=== PATIENT | male | born 1950 | race Caucasian/White ===

== ENCOUNTER 2023-03-24 15:24 | Emergency (ER) | payer MEDICARE, SELFPAY ==
[2023-03-24] VITALS (41 sets, daily range): BP systolic 134–190; BP diastolic 67–96; PULSE 47–77; RESP 9–29; TEMP 36.7; O2SAT 80–100; BMI 22.7
--- NOTE | 2023-03-24 15:39 | DI.RAD.S_ITS ---
PROCEDURE: XR CHEST 1V INDICATIONS: Possible stroke TECHNIQUE: One view of the chest was acquired. COMPARISON: None. FINDINGS: Surgical changes and devices: None. Lungs and pleura: Slight appearance of increased right basilar opacity. Mediastinum: Mediastinal contours appear normal. Heart size is enlarged. Bones and chest wall: No suspicious bony lesions. Overlying soft tissues appear unremarkable. IMPRESSION: Slight appearance of right basilar opacity. This could represent atelectasis versus developing pneumonia. Dictated by: Rachel Cheung M.D. on 03/24/2023 at 15:53 Approved by: Rachel Cheung M.D. on 03/24/2023 at 15:53
--- NOTE | 2023-03-24 15:40 | DI.CT.S_ITS ---
PROCEDURE: CT ANGIO HEAD AND NECK INDICATIONS: right arm numbness a few nights ago hx TIA TECHNIQUE: After the administration of intravenous contrast, 1 mm thick sections acquired from the aortic arch through the [place]. 3-dimensional qudqnqy-wwpkepimj-szzwedmvwj (MIP) and/or volume rendering reformats were acquired of the central intracranial vasculature and neck separately. For radiation dose reduction, the following was used: automated exposure control, adjustment of mA and/or kV according to patient size. COMPARISON: [facility], CT, CT HEAD/BRAIN WO CON, 03/24/2023, 16:38. FINDINGS: Image quality: Diagnostic. BRAIN: See separately dictated CT of the head. HEAD CT ANGIOGRAPHY: Anterior circulation: Calcified and noncalcified atherosclerotic plaques of the internal carotid arteries. Moderate narrowing of the bilateral terminal segments and left ophthalmic segment. There is a small outpouching of the left distal cavernous segment of the YASH measuring approximately 2 x 1 mm. The flow within the paired anterior cerebral arteries is normal and symmetric. Mild to moderate stenosis of the proximal M1 segments bilaterally. No large vessel occlusion or hemodynamically significant stenosis. The anterior communicating artery is seen. No aneurysms are seen. Posterior circulation: Visualized portions of the vertebral arteries demonstrate normal caliber, and join to form a normal appearing basilar artery. origin of the right [employer]. Flow within the posterior cerebral arteries is symmetric with areas of mild to moderate atherosclerotic narrowing.. No aneurysms are seen. NECK CT ANGIOGRAPHY: Carotid system: The great vessels demonstrate a conventional anatomy as they arise from the aortic arch. Atherosclerotic vascular calcifications. The origins of the common carotid arteries appear patent. The common carotid arteries demonstrate normal caliber and courses. Calcified and noncalcified atherosclerotic plaques at the bilateral carotid bulbs. There is 50-69% stenosis of the right proximal ICA by NASCET criteria. 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 Proximal and distal to the pseudoaneurysm there is severe stenosis with greater than 90% narrowing by NASCET criteria. The internal carotid arteries demonstrate normal calibers and courses. Posterior circulation: Moderate narrowing at the origin of the right vertebral artery. Mild narrowing of the origin of the left vertebral artery. The more superior extracranial portions of both vertebral arteries also demonstrate normal courses and calibers. The left vertebral artery appears to terminate into the PICA. The right vertebral artery forms the basilar artery. There is irregularity and aneurysmal dilatation of the right vertebral artery measuring up to 4 x 6 mm. 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 Soft tissues: Visualized neck soft tissues demonstrate no suspicious abnormalities. Bones: No suspicious bony lesions. Visualized cervical spine appears normally aligned. Multilevel degenerative changes of the cervical spine. IMPRESSION: CT angiography head: 1. Areas of up to moderate stenosis of the bilateral intracranial ICA secondary to calcified and noncalcified atherosclerotic plaques. 2. There is a small outpouching of the left cavernous ICA laterally measuring 2 x 1 mm. 3. Mild to moderate narrowing of the bilateral proximal M1 segments. 4. No large vessel occlusion or flow-limiting stenosis intracranially. 5. 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 CT angiography neck: 1. Calcified and noncalcified plaques of the bilateral carotid bifurcations. There is approximately 50-69% stenosis of the right proximal ICA by NASCET criteria. 2. 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 3. Proximal and distal to the pseudoaneurysm, there is severe stenosis of the ICA with greater than 90% narrowing by NASCET criteria. Any quantitative measurements of stenosis were performed using NASCET criteria. Dictated by: Parveen Clemens M.D. on 03/24/2023 at 17:03 Approved by: Parveen Clemens M.D. on 03/24/2023 at 17:16
--- NOTE | 2023-03-24 15:40 | DI.CT.S_ITS ---
PROCEDURE: CT HEAD/BRAIN WO CON INDICATIONS: right arm numbness a few nights ago hx TIA TECHNIQUE: Noncontrast 4.5 mm thick angled axial sections acquired from the foramen magnum to the vertex, with coronal and sagittal reformats. For radiation dose reduction, the following was used: automated exposure control, adjustment of mA and/or kV according to patient size. COMPARISON: [facility], CT, CT ANGIO HEAD AND NECK, 03/24/2023, 16:38. FINDINGS: Image quality: Excellent. CSF spaces: Basal cisterns are patent. No extra-axial fluid collections. The ventricles are symmetric in size and shape. Brain: There is low density seen involving the posterior aspect of the left MCA territory. No intracranial bleeds or masses. There is cerebral volume loss for age, with resultant ventricular and sulcal prominence. There are periventricular and deep white matter chronic small vessel ischemic changes. There is intracranial internal carotid artery atherosclerosis. Skull and face: Calvarium and visualized facial bones appear intact, without suspicious lesions. Sinuses: Extensive paranasal sinus disease is seen. Abnormal soft tissue can be seen within the nasal cavity. No abnormal fluid is seen within the mastoid air cells. 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 No acute intracranial hemorrhage is seen. If there is strong clinical suspicion for an acute stroke, please consider a brain MRI for further evaluation, as it is more sensitive (assuming that there is no contraindication to MRI). Extensive paranasal sinus disease, with likely underlying nasal polyp disease. Dictated by: Avinash Mathews M.D. on 03/24/2023 at 16:03 Approved by: Avinash Mathews M.D. on 03/24/2023 at 16:07
[2023-03-24 16:03] LABS: Prothrombin Time 11.9 SECONDS (10.1-12.7)
[2023-03-24 16:04] LABS: Add Manual Diff / Slide Review NO; Basophils Absolute Auto 100 /uL (0-100); Basophils Percent Auto 0.9 % (0-2); Eosinophils Absolute Auto 400 /uL (0-450); Eosinophils Percent Auto 6.1 % (2-4); Hematocrit 41.2 % (41-53); Hemoglobin 13.8 g/dL (13.5-17.5); Lymphocytes Absolute Auto 1400 /uL (1100-4500); Lymphocytes Percent Auto 19.4 % (25-40); Mean Corpuscular HGB Conc 33.4 % (30-36); Mean Corpuscular Hemoglobin 27.6 PG (26-34); Mean Corpuscular Volume 82.6 fL (80-100); Monocytes Absolute Auto 600 /uL (0-900); Monocytes Percent Auto 7.8 % (3-14); Neutrophils Absolute Auto 4700 /uL (1500-7000); Neutrophils Percent Auto 65.8 % (50-75); Platelet Count 283 X10^3/uL (150-400); Red Blood Cell Count 4.99 X10^6/uL (4.5-5.9); Red Cell Distribution Width 13.4 % (11.6-14.8); White Blood Cell Count 7.1 X10^3/uL (4.5-11.0)
[2023-03-24 16:05] LABS: PTT Partial Thromboplastin Tim 29 SECONDS (26-36)
[2023-03-24 16:16] LABS: Alanine Aminotransferase 22 IU/L (<50); Albumin 4.6 g/dL (3.5-5.0); Albumin Globulin Ratio 1.4 (1.0-2.8); Alkaline Phosphatase 70 U/L (38-126); Aspartate Aminotransferase 26 IU/L (17-59); BUN Creatinine Ratio 25.6 (6-22); Bilirubin Total 0.8 mg/dL (0.2-1.3); Blood Urea Nitrogen 34 mg/dL (9-20); Calcium 9.3 mg/dL (8.4-10.2); Carbon Dioxide 24 mmol/L (22-32); Chloride 98 mmol/L (98-107); Creatine Kinase 75 U/L (55-170); Estimated Glomerular Filt Rate 56 mL/min (>60); Globulin 3.4 g/dL (1.7-4.1); Glucose 101 mg/dL (80-110); Potassium 4.6 mmol/L (3.4-5.1); Sodium 135 mmol/L (137-145)
[2023-03-24 16:24] LABS: HEMOLYSIS 58 (0-50)
[2023-03-24 16:26] LABS: Troponin I < 0.012 ng/mL (0.01-0.034)
--- NOTE | 2023-03-24 16:35 | DI.MRI.S_ITS ---
PROCEDURE: MR HEAD/BRAIN WO CON INDICATIONS: TIA/right arm numbness TECHNIQUE: Non-contrast axial T1 spin echo, axial T2 fast spin echo, sagittal and axial FLAIR, coronal T2 fast spin echo, axial gradient echo, axial diffusion and ADC through the brain. COMPARISON: [facility], CT, CT ANGIO HEAD AND NECK, 03/24/2023, 16:38. [facility], CT, CT HEAD/BRAIN WO CON, 03/24/2023, 16:38. FINDINGS: Image quality: Excellent. CSF spaces: Ventricles appear symmetric in size and shape. Basal cisterns are patent. No extra-axial fluid collections. Brain: No intracranial bleeds or mass effects. There is cerebral volume loss for age. There are periventricular and deep white matter chronic small vessel ischemic changes. Brainstem appears normal. Diffusion-weighted images demonstrate a punctate areas of hyper intensity within the left basal ganglia and subinsular region. These areas demonstrate hypointense signal on T1. There is appearance of old focus ischemia in the left posterior parietal lobe. Intravascular flow void septate mild aneurysmal dilation of the right vertebral artery as well as basilar artery. Skull and face: Calvarial bone marrow is normal in signal. Orbits are normal. Sinuses: Sinuses demonstrate diffuse pansinus mucosal thickening. No fluid levels. IMPRESSION: Punctate acute/subacute punctate areas of ischemia within the left basal ganglia/subinsular region. 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 Please see CT a head and neck report of 03/24/2023 for further details. Dictated by: Rachel Cheung M.D. on 03/24/2023 at 19:10 Approved by: Rachel Cheung M.D. on 03/24/2023 at 19:13
--- NOTE | 2023-03-24 16:37 | ED_ITS ---
HPI - Neuro Symptoms/Deficit <Lucian Foster MD - Last Filed: 04/01/23 09:46> General Chief Complaint: Neuro Symptoms/Deficit Stated Complaint: sent by wic/stroke like symptoms/confusion Time Seen by Provider: 03/24/23 15:37 Source: patient Mode of arrival: Ambulatory History of Present Illness HPI Narrative: Patient here for 2 episodes of right arm numbness tingling in the past 1 week. First episode occurred last week 2nd episode occurred this past Wednesday. It has improved but still persistent. Only mild tingling between the shoulder and fingers now. No slurred speech facial droop headache no confusion altered mental status. Patient has history of TIA a year ago at [facility]. Patient observed there for 5 hours. No MRI was done he states. Has not follow up with anybody for this. Has history of high blood pressure. Is followed by the [place] for high blood pressure. Patient in no distress at this time. Patient outside window for thrombolytics. Outside the window for endovascular interven tion. Fast exam is negative On Anticoagulants: No Related Data Allergies Allergy/AdvReac Type Severity Reaction Status Date / Time No Known Drug Allergies Allergy Verified 03/24/23 15:52 Review of Systems <Lucian Foster MD - Last Filed: 04/01/23 09:46> Review of Systems Narrative: GENERAL: negative chills, fatigue, malaise, fever, sweats. HEENT: negative sinus pain, ear pain, sore throat RESPIRATORY: negative dyspnea, cough CARDIOVASCULAR: negative chest pain, palpitations GASTROINTESTINAL: negative nausea, vomiting, abdominal pain : negative dysuria, frequency, hematuria MUSCULOSKELETAL: negative muscle or bony pain SKIN: negative rash, skin lesions NEUROLOGIC: negative weakness, positive numbness ROS Unobtainable: All systems reviewed & are unremarkable except as noted in HPI and below Hematologic/Lymphatic On Anticoagulants: No Patient History <Lucian Foster MD - Last Filed: 04/01/23 09:46> Social History Smoking Status: Never smoker Smoking Status: Never smoker Substance Use Type: does not use Exam <Lucian Foster MD - Last Filed: 04/01/23 09:46> Narrative Exam Narrative: GENERAL: in no distress, not toxic not dyspneic HEAD: Normocephalic. EYES: Pupils equal round ENT: Mucous membranes moist. NECK: Trachea midline. CARDIOVASCULAR: Regular rate and rhythm RESPIRATORY: Clear to auscultation. Breath sounds equal bilaterally. No wheezes, rales, or rhonchi. GASTROINTESTINAL: Abdomen soft, non-tender EXTREMITIES: No gross deformities. BACK: No flank tenderness. NEURO: AOx4.Clear speech no facial droop. ?Light touch intact to bilateral face hands and feet. ?Strong equal stone circular sawyer bilaterally and ankle flexion hip flexion and knee flexion. ?Strong bilateral patellar reflexes. ?No pronator drift. ? SKIN: Warm and dry PSYCH: Not anxious, is cooperative Initial Vital Signs Initial Vital Signs: Vital Signs Temperature 98.1 F 03/24/23 15:25 Pulse Rate 69 03/24/23 15:25 Respiratory Rate 16 03/24/23 15:25 Blood Pressure 175/84 H 03/24/23 15:25 Pulse Oximetry 99 03/24/23 15:25 Oxygen Delivery Method Room Air 03/24/23 15:25 <Maxx Suero DO - Last Filed: 03/25/23 00:09> Initial Vital Signs Initial Vital Signs: Vital Signs Temperature 98.1 F 03/24/23 15:25 Pulse Rate 69 03/24/23 15:25 Respiratory Rate 16 03/24/23 15:25 Blood Pressure 175/84 H 03/24/23 15:25 Pulse Oximetry 99 03/24/23 15:25 Oxygen Delivery Method Room Air 03/24/23 15:25 Scores <Lucian Foster MD - Last Filed: 04/01/23 09:46> NIH Stroke Scale Level of Conciousness: Alert, keenly responsive Ask month/age: Answers both questions correctly. Open/close eyes, close hand: Performs both tasks correctly Best gaze horizontal: Normal Visual mercado: No visual loss Facial palsy: Normal symetrical movement Left arm drift: No drift for full 10 sec Right arm drift: No drift for full 10 sec Left leg drift: No drift for full 5 sec Right leg drift: No drift for full 5 sec Limb ataxia: Absent Sensory on face/arms/legs: Normal, no sensory loss Best language: No aphasia, normal Dysarthria: Normal Extinction or inattention: No abnormality Total NIH Stroke scale score: 0 <Maxx Suero DO - Last Filed: 03/25/23 00:09> NIH Stroke Scale Total NIH Stroke scale score: 0 Course <Lucian Foster MD - Last Filed: 04/01/23 09:46> Orders Ordered: Discontinued Medications Aspirin (Aspirin 81 Mg Chew Tab) 324 mg PO NOW ONE Stop: 03/24/23 18:07 Last Admin: 03/24/23 18:13 Dose: 324 mg Documented By: SPF Ondansetron HCl (Ondansetron 4 Mg/2 Ml Inj) 4 mg IV NOW PRN PRN Reason: Nausea And Vomiting Ondansetron HCl (Ondansetron 4 Mg Odt) 4 mg SL NOW PRN PRN Reason: Nausea And Vomiting Vital Signs Vital signs: Vital Signs - 8 hr 03/24/23 16:16 03/24/23 16:16 03/24/23 16:30 Pulse Rate 54 L Respiratory Rate 12 Blood Pressure 161/87 H 165/96 H Pulse Oximetry Oxygen Delivery Method 03/24/23 16:30 03/24/23 17:14 03/24/23 17:15 Pulse Rate 66 58 L Respiratory Rate 15 29 H Blood Pressure 177/86 H Pulse Oximetry 94 Oxygen Delivery Method 03/24/23 17:15 03/24/23 17:30 03/24/23 17:30 Pulse Rate 62 50 L Respiratory Rate 15 18 Blood Pressure 164/77 H Pulse Oximetry 97 97 Oxygen Delivery Method Room Air 03/24/23 17:45 03/24/23 17:45 03/24/23 18:00 Pulse Rate 50 L Respiratory Rate 17 Blood Pressure 152/76 H 164/85 H Pulse Oximetry 96 Oxygen Delivery Method Room Air 03/24/23 18:00 03/24/23 18:15 03/24/23 18:15 Pulse Rate 51 L 62 Respiratory Rate 22 18 Blood Pressure 170/87 H Pulse Oximetry 95 95 Oxygen Delivery Method Room Air Room Air 03/24/23 19:12 03/24/23 19:20 03/24/23 19:30 Pulse Rate 65 53 L 54 L Respiratory Rate 12 Blood Pressure Pulse Oximetry 80 L 100 98 Oxygen Delivery Method 03/24/23 19:40 03/24/23 19:50 03/24/23 20:00 Pulse Rate 52 L 50 L 49 L Respiratory Rate Blood Pressure Pulse Oximetry 98 99 96 Oxygen Delivery Method 03/24/23 20:10 03/24/23 20:10 03/24/23 20:15 Pulse Rate 59 L 50 L Respiratory Rate Blood Pressure 157/74 H Pulse Oximetry 96 99 Oxygen Delivery Method 03/24/23 20:15 03/24/23 20:20 03/24/23 20:30 Pulse Rate 49 L Respiratory Rate Blood Pressure 153/74 H 149/70 H Pulse Oximetry 96 Oxygen Delivery Method 03/24/23 20:30 03/24/23 20:40 03/24/23 20:45 Pulse Rate 47 L 50 L Respiratory Rate Blood Pressure 151/74 H Pulse Oximetry 99 99 Oxygen Delivery Method 03/24/23 20:45 03/24/23 20:50 03/24/23 21:00 Pulse Rate 49 L 49 L Respiratory Rate Blood Pressure 134/70 Pulse Oximetry 99 99 Oxygen Delivery Method 03/24/23 21:00 03/24/23 21:15 03/24/23 21:16 Pulse Rate 56 L 49 L 49 L Respiratory Rate 18 18 17 Blood Pressure Pulse Oximetry 99 99 99 Oxygen Delivery Method Room Air 03/24/23 21:16 03/24/23 21:30 03/24/23 21:30 Pulse Rate 49 L Respiratory Rate 14 Blood Pressure 154/73 H 154/73 H Pulse Oximetry 97 Oxygen Delivery Method 03/24/23 21:45 03/24/23 21:45 03/24/23 22:00 Pulse Rate 50 L Respiratory Rate 17 Blood Pressure 137/67 144/74 H Pulse Oximetry 97 Oxygen Delivery Method 03/24/23 22:00 03/24/23 22:15 03/24/23 22:16 Pulse Rate 50 L 51 L Respiratory Rate 16 14 Blood Pressure 157/78 H Pulse Oximetry 97 97 Oxygen Delivery Method 03/24/23 22:16 03/24/23 22:30 03/24/23 22:30 Pulse Rate 52 L 51 L Respiratory Rate 16 19 Blood Pressure 166/84 H Pulse Oximetry 97 98 Oxygen Delivery Method Room Air 03/24/23 22:45 03/24/23 22:45 03/24/23 23:00 Pulse Rate 48 L Respiratory Rate 18 Blood Pressure 156/75 H 176/84 H Pulse Oximetry 97 Oxygen Delivery Method 03/24/23 23:00 03/24/23 23:15 03/24/23 23:15 Pulse Rate 52 L 73 Respiratory Rate 20 16 Blood Pressure 190/95 H Pulse Oximetry 98 96 Oxygen Delivery Method 03/24/23 23:30 03/24/23 23:31 03/24/23 23:31 Pulse Rate 77 77 Respiratory Rate 18 15 Blood Pressure 186/96 H Pulse Oximetry 94 94 Oxygen Delivery Method 03/24/23 23:45 03/24/23 23:46 03/24/23 23:46 Pulse Rate 57 L 58 L Respiratory Rate 13 18 Blood Pressure 149/79 H Pulse Oximetry 96 96 Oxygen Delivery Method 03/25/23 00:00 03/25/23 00:00 Pulse Rate 62 Respiratory Rate 22 Blood Pressure 156/80 H Pulse Oximetry 97 Oxygen Delivery Method Room Air <Maxx Suero, DO - Last Filed: 03/25/23 00:09> Orders Ordered: Discontinued Medications Aspirin (Aspirin 81 Mg Chew Tab) 324 mg PO NOW ONE Stop: 03/24/23 18:07 Last Admin: 03/24/23 18:13 Dose: 324 mg Documented By: DOROTEO Ondansetron HCl (Ondansetron 4 Mg/2 Ml Inj) 4 mg IV NOW PRN PRN Reason: Nausea And Vomiting Ondansetron HCl (Ondansetron 4 Mg Odt) 4 mg SL NOW PRN PRN Reason: Nausea And Vomiting Vital Signs Vital signs: Vital Signs - 8 hr 03/24/23 16:16 03/24/23 16:16 03/24/23 16:30 Pulse Rate 54 L Respiratory Rate 12 Blood Pressure 161/87 H 165/96 H Pulse Oximetry Oxygen Delivery Method 03/24/23 16:30 03/24/23 17:14 03/24/23 17:15 Pulse Rate 66 58 L Respiratory Rate 15 29 H Blood Pressure 177/86 H Pulse Oximetry 94 Oxygen Delivery Method 03/24/23 17:15 03/24/23 17:30 03/24/23 17:30 Pulse Rate 62 50 L Respiratory Rate 15 18 Blood Pressure 164/77 H Pulse Oximetry 97 97 Oxygen Delivery Method Room Air 03/24/23 17:45 03/24/23 17:45 03/24/23 18:00 Pulse Rate 50 L Respiratory Rate 17 Blood Pressure 152/76 H 164/85 H Pulse Oximetry 96 Oxygen Delivery Method Room Air 03/24/23 18:00 03/24/23 18:15 03/24/23 18:15 Pulse Rate 51 L 62 Respiratory Rate 22 18 Blood Pressure 170/87 H Pulse Oximetry 95 95 Oxygen Delivery Method Room Air Room Air 03/24/23 19:12 03/24/23 19:20 03/24/23 19:30 Pulse Rate 65 53 L 54 L Respiratory Rate 12 Blood Pressure Pulse Oximetry 80 L 100 98 Oxygen Delivery Method 03/24/23 19:40 03/24/23 19:50 03/24/23 20:00 Pulse Rate 52 L 50 L 49 L Respiratory Rate Blood Pressure Pulse Oximetry 98 99 96 Oxygen Delivery Method 03/24/23 20:10 03/24/23 20:10 03/24/23 20:15 Pulse Rate 59 L 50 L Respiratory Rate Blood Pressure 157/74 H Pulse Oximetry 96 99 Oxygen Delivery Method 03/24/23 20:15 03/24/23 20:20 03/24/23 20:30 Pulse Rate 49 L Respiratory Rate Blood Pressure 153/74 H 149/70 H Pulse Oximetry 96 Oxygen Delivery Method 03/24/23 20:30 03/24/23 20:40 03/24/23 20:45 Pulse Rate 47 L 50 L Respiratory Rate Blood Pressure 151/74 H Pulse Oximetry 99 99 Oxygen Delivery Method 03/24/23 20:45 03/24/23 20:50 03/24/23 21:00 Pulse Rate 49 L 49 L Respiratory Rate Blood Pressure 134/70 Pulse Oximetry 99 99 Oxygen Delivery Method 03/24/23 21:00 03/24/23 21:15 03/24/23 21:16 Pulse Rate 56 L 49 L 49 L Respiratory Rate 18 18 17 Blood Pressure Pulse Oximetry 99 99 99 Oxygen Delivery Method Room Air 03/24/23 21:16 03/24/23 21:30 03/24/23 21:30 Pulse Rate 49 L Respiratory Rate 14 Blood Pressure 154/73 H 154/73 H Pulse Oximetry 97 Oxygen Delivery Method 03/24/23 21:45 03/24/23 21:45 03/24/23 22:00 Pulse Rate 50 L Respiratory Rate 17 Blood Pressure 137/67 144/74 H Pulse Oximetry 97 Oxygen Delivery Method 03/24/23 22:00 03/24/23 22:15 03/24/23 22:16 Pulse Rate 50 L 51 L Respiratory Rate 16 14 Blood Pressure 157/78 H Pulse Oximetry 97 97 Oxygen Delivery Method 03/24/23 22:16 03/24/23 22:30 03/24/23 22:30 Pulse Rate 52 L 51 L Respiratory Rate 16 19 Blood Pressure 166/84 H Pulse Oximetry 97 98 Oxygen Delivery Method Room Air 03/24/23 22:45 03/24/23 22:45 03/24/23 23:00 Pulse Rate 48 L Respiratory Rate 18 Blood Pressure 156/75 H 176/84 H Pulse Oximetry 97 Oxygen Delivery Method 03/24/23 23:00 03/24/23 23:15 03/24/23 23:15 Pulse Rate 52 L 73 Respiratory Rate 20 16 Blood Pressure 190/95 H Pulse Oximetry 98 96 Oxygen Delivery Method 03/24/23 23:30 03/24/23 23:31 03/24/23 23:31 Pulse Rate 77 77 Respiratory Rate 18 15 Blood Pressure 186/96 H Pulse Oximetry 94 94 Oxygen Delivery Method 03/24/23 23:45 03/24/23 23:46 03/24/23 23:46 Pulse Rate 57 L 58 L Respiratory Rate 13 18 Blood Pressure 149/79 H Pulse Oximetry 96 96 Oxygen Delivery Method 03/25/23 00:00 03/25/23 00:00 Pulse Rate 62 Respiratory Rate 22 Blood Pressure 156/80 H Pulse Oximetry 97 Oxygen Delivery Method Room Air MDM - Neuro Symptoms/Deficit <Lucian Foster MD - Last Filed: 04/01/23 09:46> Lab Data 03/24/23 15:47 03/24/23 15:47 Labs: Lab Results 03/24/23 03/24/23 03/24/23 Range/Units 15:47 15:47 15:47 WBC 7.1 (4.5-11.0) X10^3/uL RBC 4.99 (4.5-5.9) X10^6/uL Hgb 13.8 (13.5-17.5) g/dL Hct 41.2 (41-53) % MCV 82.6 (80-100) fL MCH 27.6 (26-34) PG MCHC 33.4 (30-36) % RDW 13.4 (11.6-14.8) % Plt Count 283 (150-400) X10^3/uL Neut % (Auto) 65.8 (50-75) % Lymph % (Auto) 19.4 L (25-40) % Vernon % (Auto) 7.8 (3-14) % Eos % (Auto) 6.1 H (2-4) % Baso % (Auto) 0.9 (0-2) % Neut # (Auto) 4700 (4499-9580) /uL Lymph # (Auto) 1400 (9989-9855) /uL Vernon # (Auto) 600 (0-900) /uL Eos # (Auto) 400 (0-450) /uL Baso # (Auto) 100 (0-100) /uL PT 11.9 (10.1-12.7) SECONDS INR 1.0 (0.9-1.3) APTT 29 (26-36) SECONDS Sodium 135 L (137-145) mmol/L Potassium 4.6 (3.4-5.1) mmol/L Chloride 98 (98-107) mmol/L Carbon Dioxide 24 (22-32) mmol/L BUN 34 H (9-20) mg/dL Creatinine 1.33 H (0.66-1.25) mg/dL Estimated GFR 56 L (>60) mL/min BUN/Creatinine Ratio 25.6 H (6-22) Glucose 101 (80-110) mg/dL Calcium 9.3 (8.4-10.2) mg/dL Magnesium 2.0 (1.6-2.3) mg/dL Total Bilirubin 0.8 (0.2-1.3) mg/dL AST 26 (17-59) IU/L ALT 22 (<50) IU/L Alkaline Phosphatase 70 (38-126) U/L Total Creatine Kinase 75 (55-170) U/L Troponin I < 0.012 (0.01-0.034) ng/mL Total Protein 8.0 (6.3-8.2) g/dL Albumin 4.6 (3.5-5.0) g/dL Globulin 3.4 (1.7-4.1) g/dL Albumin/Globulin Ratio 1.4 (1.0-2.8) Urine Color Urine Appearance Urine pH (4.5-8.0) Ur Specific Sharon (1.000-1.035) Urine Protein (Negative) Urine Glucose (UA) (Negative) g/dL Urine Ketones (NEGATIVE) Urine Occult Blood (Negative) Urine Nitrate (Negative) Urine Bilirubin (NEGATIVE) Urine Urobilinogen (0.2) E.U./dL Ur Leukocyte Esterase (NEGATIVE) Urine RBC (0-5/HPF) Urine WBC (0-5/HPF) Ur Squamous Epith Cells (0-5/HPF) Urine Bacteria (None) Ur Culture Indicated? U Opiates 300ng/mL cut (Negative) Ur Oxycodone Screen (Negative) Urine Methadone Screen (Negative) Ur Barbiturates Screen (Negative) U Tricyclic Antidepress (Negative) Ur Phencyclidine Scrn (Negative) Ur Amphetamines Screen (Negative) U Methamphetamines Scrn (Negative) Ur MDMA Scrn (Ecstasy) (Negative) U Benzodiazepines Scrn (Negative) Urine Cocaine Screen (Negative) U Marijuana (THC) Screen (Negative) SARS-CoV-2 (PCR) (Negative) 03/24/23 03/24/23 03/24/23 Range/Units 18:30 20:37 22:05 WBC (4.5-11.0) X10^3/uL RBC (4.5-5.9) X10^6/uL Hgb (13.5-17.5) g/dL Hct (41-53) % MCV (80-100) fL MCH (26-34) PG MCHC (30-36) % RDW (11.6-14.8) % Plt Count (150-400) X10^3/uL Neut % (Auto) (50-75) % Lymph % (Auto) (25-40) % Vernon % (Auto) (3-14) % Eos % (Auto) (2-4) % Baso % (Auto) (0-2) % Neut # (Auto) (6182-6092) /uL Lymph # (Auto) (3866-9147) /uL Vernon # (Auto) (0-900) /uL Eos # (Auto) (0-450) /uL Baso # (Auto) (0-100) /uL PT (10.1-12.7) SECONDS INR (0.9-1.3) APTT (26-36) SECONDS Sodium (137-145) mmol/L Potassium (3.4-5.1) mmol/L Chloride (98-107) mmol/L Carbon Dioxide (22-32) mmol/L BUN (9-20) mg/dL Creatinine (0.66-1.25) mg/dL Estimated GFR (>60) mL/min BUN/Creatinine Ratio (6-22) Glucose (80-110) mg/dL Calcium (8.4-10.2) mg/dL Magnesium (1.6-2.3) mg/dL Total Bilirubin (0.2-1.3) mg/dL AST (17-59) IU/L ALT (<50) IU/L Alkaline Phosphatase (38-126) U/L Total Creatine Kinase (55-170) U/L Troponin I (0.01-0.034) ng/mL Total Protein (6.3-8.2) g/dL Albumin (3.5-5.0) g/dL Globulin (1.7-4.1) g/dL Albumin/Globulin Ratio (1.0-2.8) Urine Color Yellow Urine Appearance Clear Urine pH 7.0 (4.5-8.0) Ur Specific Sharon <=1.005 (1.000-1.035) Urine Protein Negative (Negative) Urine Glucose (UA) Negative (Negative) g/dL Urine Ketones Negative (NEGATIVE) Urine Occult Blood Negative (Negative) Urine Nitrate Negative (Negative) Urine Bilirubin Negative (NEGATIVE) Urine Urobilinogen 0.2 (0.2) E.U./dL Ur Leukocyte Esterase Negative (NEGATIVE) Urine RBC None seen (0-5/HPF) Urine WBC None seen (0-5/HPF) Ur Squamous Epith Cells 0-1 /hpf (0-5/HPF) Urine Bacteria None seen (None) Ur Culture Indicated? Cult not indicated U Opiates 300ng/mL cut Negative (Negative) Ur Oxycodone Screen Negative (Negative) Urine Methadone Screen Negative (Negative) Ur Barbiturates Screen Negative (Negative) U Tricyclic Antidepress Negative (Negative) Ur Phencyclidine Scrn Negative (Negative) Ur Amphetamines Screen Negative (Negative) U Methamphetamines Scrn Negative (Negative) Ur MDMA Scrn (Ecstasy) Negative (Negative) U Benzodiazepines Scrn Negative (Negative) Urine Cocaine Screen Negative (Negative) U Marijuana (THC) Screen Negative (Negative) SARS-CoV-2 (PCR) Negative (Negative) Point of Care Testing Glucose POC 94 Imaging Data Chest x-ray: Radiologist's Impression: [address] [address] XRay Report Signed Patient: Evans Dupont MR#: [id number] : 1950 Acct:[id number] Age/Sex: 72 / M Date of Service: 03/24/23 Loc: ED Accession Number: [id number] ?? Procedure: XR chest 1V Ordering Provider: Lucian Foster MD PROCEDURE:? XR CHEST 1V ? INDICATIONS:? Possible stroke ? TECHNIQUE:? One view of the chest was acquired.? ? COMPARISON:? None. ? FINDINGS:? ? Surgical changes and devices:? None.? ? Lungs and pleura:? Slight appearance of increased right basilar opacity. ? Mediastinum:? Mediastinal contours appear normal.? Heart size is enlarged. ? Bones and chest wall:? No suspicious bony lesions.? Overlying soft tissues appear unremarkable.? ? ? IMPRESSION:? Slight appearance of right basilar opacity.? This could represent atelectasis versus developing pneumonia. ? ? Dictated by: Rachel Cheung M.D. on 03/24/2023 at 15:53 ? ? Approved by: Rachel Cheung M.D. on 03/24/2023 at 15:53 ? CTA - brain/neck: Radiologist's Impression: [place] [address] CT Scan Report Signed Patient: Evans Dupont MR#: [id number] : 1950 Acct:[id number] Age/Sex: 72 / M Date of Service: 03/24/23 Loc: ED Accession Number: [id number] ?? Procedure: CT angio head and neck Ordering Provider: Lucian Foster MD PROCEDURE:? CT ANGIO HEAD AND NECK ? INDICATIONS:? right arm numbness a few nights ago hx TIA ? TECHNIQUE:? After the administration of intravenous contrast, 1 mm thick sections acquired from the aortic arch through the [place] of Romero.? 3-dimensional ghzaprh-knkvxltfr-gjtplhemjk (MIP) and/or volume rendering reformats were acquired of the central intracranial vasculature and neck separately. For radiation dose reduction, the following was used:? automated exposure control, adjustment of mA and/or kV according to patient size.? ? COMPARISON:? [facility], CT, CT HEAD/BRAIN WO CON, 03/24/2023, 16:38. ? FINDINGS:? Image quality:? Diagnostic.? ? BRAIN:? See separately dictated CT of the head.? ? HEAD CT ANGIOGRAPHY:? Anterior circulation:? Calcified and noncalcified atherosclerotic plaques of the internal carotid arteries.? Moderate narrowing of the bilateral terminal segments and left ophthalmic segment.? There is a small outpouching of the left distal cavernous segment of the YASH measuring approximately 2 x 1 mm.? The flow within the paired anterior cerebral arteries is normal and symmetric.? Mild to moderate stenosis of the proximal M1 segments bilaterally.? No large vessel occlusion or hemodynamically significant stenosis.? The anterior communicating artery is seen.? No aneurysms are seen.? ? Posterior circulation:? Visualized portions of the vertebral arteries demonstrate normal caliber, and join to form a normal appearing basilar artery.? origin of the right LOCK STITCH CHANNELER. Flow within the posterior cerebral arteries is symmetric with areas of mild to moderate atherosclerotic narrowing..? No aneurysms are seen.? ? NECK CT ANGIOGRAPHY:? Carotid system:? The great vessels demonstrate a conventional anatomy as they arise from the aortic arch.? Atherosclerotic vascular calcifications.? The origins of the common carotid arteries appear patent.? The common carotid arteries demonstrate normal caliber and courses.? Calcified and noncalcified atherosclerotic plaques at the bilateral carotid bulbs.? There is 50-69% stenosis of the right proximal ICA by NASCET criteria.? 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 Proximal and distal to the pseudoaneurysm there is severe stenosis with greater than 90% narrowing by NASCET criteria.? The internal carotid arteries demonstrate normal calibers and courses.? ? ? Posterior circulation:? Moderate narrowing at the origin of the right vertebral artery.? Mild narrowing of the origin of the left vertebral artery.? The more superior extracranial portions of both vertebral arteries also demonstrate normal courses and calibers.? The left vertebral artery appears to terminate into the PICA.? The right vertebral artery forms the basilar artery.? 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 ? Soft tissues:? Visualized neck soft tissues demonstrate no suspicious abn ormalities.? ? Bones:? No suspicious bony lesions.? Visualized cervical spine appears normally aligned.? Multilevel degenerative changes of the cervical spine. ? ? IMPRESSION:? ? CT angiography head: 1. Areas of up to moderate stenosis of the bilateral intracranial ICA secondary to calcified and noncalcified atherosclerotic plaques. 2. There is a small outpouching of the left cavernous ICA laterally measuring 2 x 1 mm. 3. Mild to moderate narrowing of the bilateral proximal M1 segments. 4. No large vessel occlusion or flow-limiting stenosis intracranially. 5. 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 ? CT angiography neck: 1. Calcified and noncalcified plaques of the bilateral carotid bifurcations.? There is approximately 50-69% stenosis of the right proximal ICA by NASCET criteria. 2. 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 3. Proximal and distal to the pseudoaneurysm, there is severe stenosis of the ICA with greater than 90% narrowing by NASCET criteria. ? Any quantitative measurements of stenosis were performed using NASCET criteria.? ? ? Dictated by: Parveen Clemens M.D. on 03/24/2023 at 17:03 ? ? Approved by: Parveen Clemens M.D. on 03/24/2023 at 17:16 ? CT scan - head: Radiologist's Impression: [place] [address] CT Scan Report Signed Patient: Evans Dupont MR#: [id number] : 1950 Acct:[id number] Age/Sex: 72 / M Date of Service: 03/24/23 Loc: Accession Number: [id number] ?? Procedure: CT head/brain wo con Ordering Provider: Lucian Foster MD PROCEDURE:? CT HEAD/BRAIN WO CON ? INDICATIONS:? right arm numbness a few nights ago hx TIA ? TECHNIQUE:? Noncontrast 4.5 mm thick angled axial sections acquired from the foramen magnum to the vertex, with coronal and sagittal reformats.? For radiation dose reduction, the following was used:? automated exposure control, adjustment of mA and/or kV according to patient size.? ? COMPARISON:? [facility], CT, CT ANGIO HEAD AND NECK, 03/24/2023, 16:38. ? FINDINGS:? Image quality:? Excellent.? ? CSF spaces:? Basal cisterns are patent.? No extra-axial fluid collections.? The ventricles are symmetric in size and shape.? ? Brain:? There is low density seen involving the posterior aspect of the left MCA territory. ? No intracranial bleeds or masses.? There is cerebral volume loss for age, with resultant ventricular and sulcal prominence.? There are periventricular and deep white matter chronic small vessel ischemic changes.? There is intracranial internal carotid artery atherosclerosis.? ? Skull and face:? Calvarium and visualized facial bones appear intact, without suspicious lesions.? ? Sinuses:? Extensive paranasal sinus disease is seen.? Abnormal soft tissue can be seen within the nasal cavity. No abnormal fluid is seen within the mastoid air cells. ? ? IMPRESSION:? Apparent infarction seen involving the posterior aspect of the left MCA territory, which has a subacute to remote appearance.? ? No acute intracranial hemorrhage is seen. ? If there is strong clinical suspicion for an acute stroke, please consider a brain MRI for further evaluation, as it is more sensitive (assuming that there is no contraindication to MRI). ? Extensive paranasal sinus disease, with likely underlying nasal polyp disease. ? ? Dictated by: Avinash Mathews M.D. on 03/24/2023 at 16:03 ? ? Approved by: Avinash Mathews M.D. on 03/24/2023 at 16:07 ? [facility] [facility] Narrative Medical decision making narrative: Patient here for 2 episodes of right arm numbness tingling in the past 1 week. First episode occurred last week 2nd episode occurred this past Wednesday. It has improved but still persistent. Only mild tingling between the shoulder and fingers now. No slurred speech facial droop headache no confusion altered mental status. Patient has history of TIA a year ago at [facility]. Patient observed there for 5 hours. No MRI was done he states. Has not follow up with anybody for this. Has history of high blood pressure. [facility]. Patient in no distress at this time. Patient outside window for thrombolytics. Outside the window for endovascular intervention. Fast exam is negative After history and exam CBC CMP troponin EKG CT head CT angiogram head and neck MRI brain normal saline MDM CC: Right arm numbness Complicating co-morbidities: History of TIA Data collected from: Patient Medical records reviewed: No recent visit for this complaint Differential considered: Includes but not limited to TIA stroke peripheral neuropathy cervical radiculopathy Exam documented above, pertinent findings include: No weakness numbness to the arm. Fast exam is negative Lab Test results independently reviewed as above. Pertinent findings: WBC 7.1 sodium 135 BUN 34 creatinine 1.33 GFR 56 troponin less than 0.012 Independently reviewed EKG sinus bradycardia rate 57 otherwise normal EKG no ST elevation or depression Imaging studies independently reviewed: CT head CT angiogram head and neck Chest x-ray no acute process Consultations: 6:00 p.m.. Spoke with [facility] tele stroke, Dr Arrington, she will review imaging, I went over reports with her. She thinks patient may be a candidate to be transferred. Treatments: Normal saline Re-evaluations: 6:10 p.m.. No changes during course of stay Discussion: Diagnosis: 6:[address] Foster: Sign out to Dr Suero MRI is pending. Patient possibly needs transferring <Maxx Suero DO - Last Filed: 03/25/23 00:09> Lab Data Labs: Lab Results 03/24/23 03/24/23 03/24/23 Range/Units 15:47 15:47 15:47 WBC 7.1 (4.5-11.0) X10^3/uL RBC 4.99 (4.5-5.9) X10^6/uL Hgb 13.8 (13.5-17.5) g/dL Hct 41.2 (41-53) % MCV 82.6 (80-100) fL MCH 27.6 (26-34) PG MCHC 33.4 (30-36) % RDW 13.4 (11.6-14.8) % Plt Count 283 (150-400) X10^3/uL Neut % (Auto) 65.8 (50-75) % Lymph % (Auto) 19.4 L (25-40) % Vernon % (Auto) 7.8 (3-14) % Eos % (Auto) 6.1 H (2-4) % Baso % (Auto) 0.9 (0-2) % Neut # (Auto) 4700 (0178-7079) /uL Lymph # (Auto) 1400 (1178-0308) /uL Vernon # (Auto) 600 (0-900) /uL Eos # (Auto) 400 (0-450) /uL Baso # (Auto) 100 (0-100) /uL PT 11.9 (10.1-12.7) SECONDS INR 1.0 (0.9-1.3) APTT 29 (26-36) SECONDS Sodium 135 L (137-145) mmol/L Potassium 4.6 (3.4-5.1) mmol/L Chloride 98 (98-107) mmol/L Carbon Dioxide 24 (22-32) mmol/L BUN 34 H (9-20) mg/dL Creatinine 1.33 H (0.66-1.25) mg/dL Estimated GFR 56 L (>60) mL/min BUN/Creatinine Ratio 25.6 H (6-22) Glucose 101 (80-110) mg/dL Calcium 9.3 (8.4-10.2) mg/dL Magnesium 2.0 (1.6-2.3) mg/dL Total Bilirubin 0.8 (0.2-1.3) mg/dL AST 26 (17-59) IU/L ALT 22 (<50) IU/L Alkaline Phosphatase 70 (38-126) U/L Total Creatine Kinase 75 (55-170) U/L Troponin I < 0.012 (0.01-0.034) ng/mL Total Protein 8.0 (6.3-8.2) g/dL Albumin 4.6 (3.5-5.0) g/dL Globulin 3.4 (1.7-4.1) g/dL Albumin/Globulin Ratio 1.4 (1.0-2.8) Urine Color Urine Appearance Urine pH (4.5-8.0) Ur Specific Sharon (1.000-1.035) Urine Protein (Negative) Urine Glucose (UA) (Negative) g/dL Urine Ketones (NEGATIVE) Urine Occult Blood (Negative) Urine Nitrate (Negative) Urine Bilirubin (NEGATIVE) Urine Urobilinogen (0.2) E.U./dL Ur Leukocyte Esterase (NEGATIVE) Urine RBC (0-5/HPF) Urine WBC (0-5/HPF) Ur Squamous Epith Cells (0-5/HPF) Urine Bacteria (None) Ur Culture Indicated? U Opiates 300ng/mL cut (Negative) Ur Oxycodone Screen (Negative) Urine Methadone Screen (Negative) Ur Barbiturates Screen (Negative) U Tricyclic Antidepress (Negative) Ur Phencyclidine Scrn (Negative) Ur Amphetamines Screen (Negative) U Methamphetamines Scrn (Negative) Ur MDMA Scrn (Ecstasy) (Negative) U Benzodiazepines Scrn (Negative) Urine Cocaine Screen (Negative) U Marijuana (THC) Screen (Negative) SARS-CoV-2 (PCR) (Negative) 03/24/23 03/24/23 03/24/23 Range/Units 18:30 20:37 22:05 WBC (4.5-11.0) X10^3/uL RBC (4.5-5.9) X10^6/uL Hgb (13.5-17.5) g/dL Hct (41-53) % MCV (80-100) fL MCH (26-34) PG MCHC (30-36) % RDW (11.6-14.8) % Plt Count (150-400) X10^3/uL Neut % (Auto) (50-75) % Lymph % (Auto) (25-40) % Vernon % (Auto) (3-14) % Eos % (Auto) (2-4) % Baso % (Auto) (0-2) % Neut # (Auto) (3608-3075) /uL Lymph # (Auto) (2792-9442) /uL Vernon # (Auto) (0-900) /uL Eos # (Auto) (0-450) /uL Baso # (Auto) (0-100) /uL PT (10.1-12.7) SECONDS INR (0.9-1.3) APTT (26-36) SECONDS Sodium (137-145) mmol/L Potassium (3.4-5.1) mmol/L Chloride (98-107) mmol/L Carbon Dioxide (22-32) mmol/L BUN (9-20) mg/dL Creatinine (0.66-1.25) mg/dL Estimated GFR (>60) mL/min BUN/Creatinine Ratio (6-22) Glucose (80-110) mg/dL Calcium (8.4-10.2) mg/dL Magnesium (1.6-2.3) mg/dL Total Bilirubin (0.2-1.3) mg/dL AST (17-59) IU/L ALT (<50) IU/L Alkaline Phosphatase (38-126) U/L Total Creatine Kinase (55-170) U/L Troponin I (0.01-0.034) ng/mL Total Protein (6.3-8.2) g/dL Albumin (3.5-5.0) g/dL Globulin (1.7-4.1) g/dL Albumin/Globulin Ratio (1.0-2.8) Urine Color Yellow Urine Appearance Clear Urine pH 7.0 (4.5-8.0) Ur Specific Sharon <=1.005 (1.000-1.035) Urine Protein Negative (Negative) Urine Glucose (UA) Negative (Negative) g/dL Urine Ketones Negative (NEGATIVE) Urine Occult Blood Negative (Negative) Urine Nitrate Negative (Negative) Urine Bilirubin Negative (NEGATIVE) Urine Urobilinogen 0.2 (0.2) E.U./dL Ur Leukocyte Esterase Negative (NEGATIVE) Urine RBC None seen (0-5/HPF) Urine WBC None seen (0-5/HPF) Ur Squamous Epith Cells 0-1 /hpf (0-5/HPF) Urine Bacteria None seen (None) Ur Culture Indicated? Cult not indicated U Opiates 300ng/mL cut Negative (Negative) Ur Oxycodone Screen Negative (Negative) Urine Methadone Screen Negative (Negative) Ur Barbiturates Screen Negative (Negative) U Tricyclic Antidepress Negative (Negative) Ur Phencyclidine Scrn Negative (Negative) Ur Amphetamines Screen Negative (Negative) U Methamphetamines Scrn Negative (Negative) Ur MDMA Scrn (Ecstasy) Negative (Negative) U Benzodiazepines Scrn Negative (Negative) Urine Cocaine Screen Negative (Negative) U Marijuana (THC) Screen Negative (Negative) SARS-CoV-2 (PCR) Negative (Negative) Point of Care Testing Glucose POC 94 MDM Narrative Medical decision making narrative: Patient here for 2 episodes of right arm numbness tingling in the past 1 week. First episode occurred last week 2nd episode occurred this past Wednesday. It has improved but still persistent. Only mild tingling between the shoulder and fingers now. No slurred speech facial droop headache no confusion altered mental status. Patient has history of TIA a year ago at [facility]. P atient observed there for 5 hours. No MRI was done he states. Has not follow up with anybody for this. Has history of high blood pressure. [facility] Patient in no distress at this time. Patient outside window for thrombolytics. Outside the window for endovascular intervention. Fast exam is negative After history and exam CBC CMP troponin EKG CT head CT angiogram head and neck MRI brain normal saline MDM CC: Right arm numbness Complicating co-morbidities: History of TIA Data collected from: Patient Medical records reviewed: No recent visit for this complaint Differential considered: Includes but not limited to TIA stroke peripheral n europathy cervical radiculopathy Exam documented above, pertinent findings include: No weakness numbness to the arm. Fast exam is negative Lab Test results independently reviewed as above. Pertinent findings: WBC 7.1 sodium 135 BUN 34 creatinine 1.33 GFR 56 troponin less than 0.012 Independently reviewed EKG sinus bradycardia rate 57 otherwise normal EKG no ST elevation or depression Imaging studies independently reviewed: CT head CT angiogram head and neck Chest x-ray no acute process Consultations: 6:00 p.m.. Spoke with [facility] tele stroke, Dr Arrington, she will review imaging, I went over reports with her. She thinks patient may be a candidate to be transferred. Treatments: Normal saline Re-evaluations: 6:10 p.m.. No changes during course of stay 6:[address] Foster: Sign out to Dr Suero MRI is pending. Patient possibly needs transferring [[id number]] ([place]) Patient received in sign out from [Kristin]. I have reviewed the clinical course and performed an independent history and physical exam. Patient continues to have very difficult speech pattern with an expressive aphasia, no ongoing extremity weakness. Just prior to his departure Dr. Foster good spoken with the [facility] stroke team who wants him transferred given the severity of the vascular abnormalities on imaging. 2100 - Dr. Arrington (Neuro @ [facility]) accepts in transfer, requests ED to ED. Patient understands and agrees with the diagnosis and plan, transport arranged <Maxx Suero, DO - Last Filed: 03/25/23 00:09> Critical Care Time Critical Care Time: Yes Total Critical Care Time: 45 Attestation: Critical Care Time [45] minutes: Critical care time is separate from other billable procedures. This critical care time includes consultation with family and other consulting doctors, review of records, and interpretation of data from labs, EKGs, imaging, etc. Discharge Plan Departure Patient Disposition: General Acute Hospital Clinical Impression: Cerebrovascular accident
[2023-03-24] MEDS: ASPIRIN 81 MG CHEW TAB 324 MG PO (18:13)
[2023-03-24 19:02] LABS: UR Morphine/Opiate cutoff 300 Negative (Negative); Ur Creatinine Normal (Normal); Ur Specific Gravity Normal (Normal); Urine Amphetamines Negative (Negative); Urine Barbiturates Negative (Negative); Urine Benzodiazepines Negative (Negative); Urine Cocaine Negative (Negative); Urine MDMA Negative (Negative); Urine Methadone Negative (Negative); Urine Methamphetamines Negative (Negative); Urine Oxycodone Negative (Negative); Urine Phencyclidine Negative (Negative); Urine Tetrahydrocannabinol Negative (Negative); Urine Tricyclic Antidepressant Negative (Negative); Urine pH Normal (Normal)
--- NOTE | 2023-03-24 19:31 | PC.NURSE ---
Addendum entered by Mary Savage CNA 03/24/23 23:45: SHON note: Unruly is currently at [facility] in [facility]. Patient has phone number of vet w/ address on his person w/ officer Daniel's number/business card. Made a page of information for patient's chart to go with him to [facility]. If patient would like to call Dr. Santamaria's number it is [phone] Addendum entered by Mary Savage CNA 03/24/23 21:37: SHON note: Checked on Seqususanne. Dog refused to get out of car for a walk. Gave dog a denture cup of water on car seat. Called [facility]'s non emergent number to ask what would be protocol for the dog if patient gets transferred. Officer Luisana called me back and told me that the dog would go to Doctor Santamaria's office and would be taken care for there. Police are doing change of shift and Officer will call me back with more information. Original Note: SHON note: Patient requested someone to check on his dog, a black small poodle mix named Unruly. Patient gave permission to check on dog in his car. Attempted to get dog from car, Unruly refused. Car's windows are rolled down to allow airflow. Will check on dog when time allows. [place]. audiovisual lead technician and doctor aware.
[2023-03-24 20:42] LABS: Appearance Urine UA CLEAR; Bilirubin Urine UA NEGATIVE (NEGATIVE); Color Urine UA YELLOW; Glucose Urine UA NEGATIVE (Negative); Ketones Urine UA NEGATIVE (NEGATIVE); Leukocyte Esterase Urine UA NEGATIVE (NEGATIVE); Nitrite Urine UA NEGATIVE (Negative); Occult Blood Urine UA NEGATIVE (Negative); Protein Urine UA NEGATIVE (Negative); Specific Gravity Urine UA <=1.005 (1.000-1.035); Urobilinogen Urine UA 0.2 E.U./dL (0.2)
[2023-03-24 20:50] LABS: RBC Urine None Seen (0-5/HPF); WBC Urine None Seen (0-5/HPF)
[2023-03-24 20:51] LABS: Bacteria Urine None Seen; Culture Indicated Urine Cult Not Indicated; Squamous Epithelial Cell Urine 0-1 /HPF (0-5/HPF)
[2023-03-24 22:25] LABS: COVID19 -Nasal RAPID Negative (Negative)
[2023-03-25] VITALS: BP 156/80; PULSE 62; RESP 22; O2SAT 97
--- NOTE | 2023-03-25 00:20 | PC.NURSE ---
Patient diagnosed with CVA and being transported via [facility] ambulance to [facility] (ER to ER transfer). Dr. Arrington is accepting ER physician. Patient had arrived to [facility] POV with his small dog Sequel, who was left in car while patient was being evaluated in ER. Once it was determined that patient would need hospitalization, staff began trying to assist patient with plan of care for his dog. Patient reports he has no family, friends, or support system in the area that could help with caring for Sequel. [place] police department contacted and options reviewed for dog care. Officer Adi proposed taking dog to [facility], which utilizes kennels at the [facility]. Patient is agreeable with this plan. Given patient's diagnosis and symptoms, staff explained to patient it would be unsafe to have him go to car to get dog to bring him to be placed in kennel until [employer] officer can pick him up. Patient states understanding and agrees to let staff go to car for dog and to lock his vehicle. This RN and SHON Amezcua brought patient's dog into ER and windows were rolled up and car locked. [facility] Security informed of patient's situation and that his car will be in parking lot for an unknown amount of time while patient is transferred to [facility]. Security provided with facesheet for patient, location of car, and the following car information: Blue, Convertible Mini [employer] S, License Plate [id number]. 2320: [employer], Officer Adi took patient dog, Sequel, to [facility]. Patient was provided with contact information for officer Adi and location information and phone number for [facility] where Sequel will be staying. 0015: [facility] ALS crew arrived. Report given to SERGIO Sanchez RN, all questions answered. Patient denies having any numbness/tingling at time of transfer, but continues to have difficultly finding words/expressive aphasia. 0025: Patient left [facility] at this time via ambulance with A ALS crew to [facility] ER.
== END 2023-03-25 00:25 | disposition short-term general hospital (02) ==
PROVIDERS: Emergency Medicine; Emergency Provider Emergency Medicine
DX: I63.9 Cerebral infarction, unspecified (principal); Z20.822 Contact with and (suspected) exposure to COVID-19
CPT/HCPCS: 36415; 70450; 70496; 70498; 70551; 71045; 80053; 80305; 81001; 82550; 82962; 83735; 84484; 85025; 85610; 85730; 87635; 93005; 93010; 99284; 99285; C9803; Q9967

== ENCOUNTER 2023-04-14 05:03 | Emergency (ER) | payer MEDICARE, SELFPAY ==
[2023-04-14 05:05] VITALS: BP 118/91; PULSE 163; RESP 15; TEMP 36; O2SAT 97
[2023-04-14 05:26] VITALS: BP 118/91; PULSE 163
[2023-04-14] MEDS: dilTIAZem 5 MG/ML SDV 15 MG IV (05:26)
[2023-04-14] MEDS: SODIUM CHLORIDE 0.9% 1,000 ML 1000 ML IV (05:26)
[2023-04-14 05:30] VITALS: BP 114/88; PULSE 78; RESP 18; O2SAT 98
[2023-04-14 06:00] VITALS: BP 118/74; PULSE 74; RESP 16; O2SAT 97
--- NOTE | 2023-04-14 06:10 | ED_ITS ---
HPI - Arrhythmia/Palpitations General Chief Complaint: Arrhythmia/Palpitations Stated Complaint: tachycardia Time Seen by Provider: 04/14/23 05:54 History of Present Illness HPI narrative: 72-year-old male former smoker with history of hypertension, hyperlipidemia, coronary artery disease with recent triple-vessel bypass presents with a friend and a chief complaint of a few hours of a rapid heart rate and some shortness of breath.? He is not dizzy nor weak or lightheaded.? He denies any chest pain but does have some pressure.? He denies any fever or chills.? He denies any history of the same.? He would recently been transferred from here to the [facility] for a new Left MCA Stroke and L ICA Stenosis with CEA on 03/26.? He developed NSTEMI in the postop phase and was found to have multivessel disease. Related Data Allergies Allergy/AdvReac Type Severity Reaction Status Date / Time No Known Drug Allergies Allergy Verified 03/24/23 15:52 Review of Systems Review of Systems Narrative: GENERAL: Denies chills, fatigue, malaise, fever, sweats. HEENT: Denies sinus pain, ear pain, sore throat, difficulty swallowing, dizziness. RESPIRATORY see HPI CARDIOVASCULAR: ?See HPI GASTROINTESTINAL: Denies nausea, vomiting, abdominal pain, diarrhea, constipation, melena. : Denies dysuria, frequency, incontinence, hematuria, urinary retention. MUSCULOSKELETAL: denies weakness, joint pain, or bony pain SKIN: Denies rash, skin lesions, or other NEUROLOGIC: Denies weakness, headache, numbness, change in speech, confusion, seizures, incoordination. PSYCHIATRIC: No concerning psychosocial issues. 12 point review of systems is negative except for those stated above Patient History Social History Smoking Status: Never smoker Smoking Status: Never smoker Substance Use Type: does not use Exam Narrative Exam Narrative: GENERAL: [72] year old patient appears stated age. Well-developed patient, in mild distress. HEAD: Atraumatic. Normocephalic. EYES: Pupils equal round and reactive. Extraocular motions intact. No scleral icterus. No injection or drainage. ENT: Nose without bleeding, purulent drainage. Throat without erythema, tonsillar hypertrophy or exudate. Airway patent. NECK: Trachea midline. Non tender CARDIOVASCULAR: ?Tachycardic but regular rhythm without murmurs, gallops, or rubs. ?Appropriately healing midsternal incision is clean, dry and intact without evidence of dehiscence RESPIRATORY: Clear to auscultation. Breath sounds equal bilaterally. No wheezes, rales, or rhonchi.? GASTROINTESTINAL: Abdomen soft, non-tender, nondistended. EXTREMITIES: No edema or joint tenderness. BACK: Nontender without deformity or crepitance. No flank tenderness. NEURO: AOx3. SKIN: No rash or erythema of visible areas Initial Vital Signs Initial Vital Signs: Vital Signs Temperature 96.8 F L 04/14/23 05:05 Pulse Rate 163 H 04/14/23 05:05 Respiratory Rate 15 04/14/23 05:05 Blood Pressure 118/91 H 04/14/23 05:05 Pulse Oximetry 97 04/14/23 05:05 Oxygen Delivery Method Room Air 04/14/23 05:05 Course Orders Ordered: ED Orders 04/14/23 Complete Blood Count AUTO DIFF Stat 04/14/23 05:38 EKG-12 Lead Routine 04/14/23 06:13 XR chest 1V Stat Comprehensive Metabolic Panel Stat Magnesium Stat PTT Partial Thromboplastin Librado Stat Prothrombin Time INR Stat Troponin & CK Cardiac Panel Stat EKG-12 Lead Stat Sodium Chloride (Normal Saline 0.9%) 1,000 mls @ 1,000 mls/hr IV BOLUS ONE Stop: 04/14/23 07:15 Last Admin: 04/14/23 05:26 Dose: 1,000 mls/hr Discontinued Medications Diltiazem HCl (Diltiazem 5 Mg/Ml Sdv) 15 mg IV NOW ONE Stop: 04/14/23 05:27 Last Admin: 04/14/23 05:26 Dose: 15 mg Vital Signs Vital signs: Vital Signs - 8 hr 04/14/23 05:05 04/14/23 05:26 04/14/23 05:30 Temperature 96.8 F L Pulse Rate 163 H 163 H 78 Respiratory Rate 15 18 Blood Pressure 118/91 H 118/91 H 114/88 Pulse Oximetry 97 98 Oxygen Delivery Method Room Air Room Air 04/14/23 06:00 Temperature Pulse Rate 74 Respiratory Rate 16 Blood Pressure 118/74 Pulse Oximetry 97 Oxygen Delivery Method Room Air MDM - Arrhythmia/Palpitations Lab Data 04/14/23 05:21 04/14/23 05:21 Labs: Lab Results 04/14/23 Range/Units 05:21 PT 13.9 H (10.1-12.7) SECONDS INR 1.2 (0.9-1.3) APTT 26 (26-36) SECONDS Sodium 138 (137-145) mmol/L Potassium 4.6 (3.4-5.1) mmol/L Chloride 106 (98-107) mmol/L Carbon Dioxide 24 (22-32) mmol/L BUN 46 H (9-20) mg/dL Creatinine 1.89 H (0.66-1.25) mg/dL Estimated GFR 37 L (>60) mL/min BUN/Creatinine Ratio 24.3 H (6-22) Glucose 120 H (80-110) mg/dL Calcium 9.1 (8.4-10.2) mg/dL Magnesium 2.1 (1.6-2.3) mg/dL Total Bilirubin 0.6 (0.2-1.3) mg/dL AST 41 (17-59) IU/L ALT 37 (<50) IU/L Alkaline Phosphatase 85 (38-126) U/L Total Creatine Kinase 53 L (55-170) U/L Troponin I 0.061 H (0.01-0.034) ng/mL Total Protein 6.7 (6.3-8.2) g/dL Albumin 3.6 (3.5-5.0) g/dL Globulin 3.1 (1.7-4.1) g/dL Albumin/Globulin Ratio 1.2 (1.0-2.8) MDM Narrative Medical decision making narrative: CC:? 72-year-old male with rapid heart rate and chest pressure Complicating co-morbidities:? Recent three-vessel CABG and carotid endarterectomy Data collected from:? Patient Medical records reviewed:? Prior notes reviewed in our EMR Differential considered, but not limited to:? AFib versus SVT versus atrial flutter versus other Exam documented above, pertinent findings include: ?Rapid regular heart rate, no labored breathing, abdomen soft Lab Test results independently reviewed as above. Pertinent findings: Independently reviewed EKG as above Imaging studies independently reviewed: Scores Used: MIPS Elements: Consultations: 532 ? call to CT Surgery (Dr. Escudero). After discussing history and physical he is happy with the outcome, does not recommend any medication changes, no anticoagulation, recommends following up and his cardiology appointment later today as previously planned Treatments: Cardizem 15mg IVP ? HR slows and then converts to NSR in 70s. Re-evaluations: Patient quickly slowed to normal sinus rhythm in the 70s and he has been asymptomatic since Discussion: Patient presents with rapid heart rate in subtle symptoms otherwise, found to be in a 2:1 atrial flutter, Cardizem 15 mg given and he slows to a normal sinus rhythm in the 70s at which point becomes asymptomatic. Labs are unremarkable, slight indeterminate troponin discussed with Cardiothoracic surgery and thought to be rate related, no need to pursue this further. Patient is asymptomatic, has an appointment later today, return precautions discussed Disposition: see below, along with detailed discharge instructions that have been reviewed with patient as well as indications for ED re-evaluation and additional outpatient follow up Discharge Plan Departure Patient Disposition: Home Clinical Impression: Atrial flutter Instructions: DI for Atrial Flutter Activity Restrictions/Additional Instructions: *You have been diagnosed with [atrial flutter. As we discussed your history and physical exam as well as labs and EKGs are reassuring. Cardizem 15 mg slowed your heart and converted you from atrial flutter into your normal sinus rhythm.] *What to do: *Please continue to take your regular medications as directed. [ ] New medication prescriptions sent to your pharmacy: [ ] [ ] New medication written as a paper prescription [ ] No new medications given *Please follow up with your previously scheduled cardiology appointment later today. *Return to Emergency Department if you should have any new, worsening or concerning symptoms, such as [fever greater than 101 F, shaking chills, worsening pain, persistent vomiting or other bothersome symptoms] Stand Alone Forms: Patient Portal/API
--- NOTE | 2023-04-14 06:13 | DI.RAD.S_ITS ---
PROCEDURE: XR CHEST 1V INDICATIONS: short of breath TECHNIQUE: One view of the chest was acquired. COMPARISON: [facility], , XR CHEST 1V, 03/24/2023, 15:39. FINDINGS: Surgical changes and devices: Sternotomy wires and mediastinal clips are present, which are new when compared to the prior radiographs. Lungs and pleura: Mild blunting of left costophrenic angle is compatible with a small pleural effusion. Mediastinum: There is a broad appearance of the lower mediastinum that may be related to recent postsurgical changes versus a hiatal hernia, left atrial enlargement, or other etiology. Cardiac silhouette is mildly enlarged. Bones and chest wall: No suspicious bony lesions. Overlying soft tissues appear unremarkable. IMPRESSION: 1. Small left pleural effusion. 2. Prominence of the lower mediastinum may be related to recent postsurgical changes, left atrial enlargement, hiatal hernia, or other etiology. Recommend AP and lateral chest radiographs versus chest CT for further evaluation. Approved by: Rupesh Garcia M.D. on 04/14/2023 at 8:29
[2023-04-14 06:25] LABS: Alanine Aminotransferase 37 IU/L (<50); Albumin 3.6 g/dL (3.5-5.0); Albumin Globulin Ratio 1.2 (1.0-2.8); Alkaline Phosphatase 85 U/L (38-126); Aspartate Aminotransferase 41 IU/L (17-59); BUN Creatinine Ratio 24.3 (6-22); Bilirubin Total 0.6 mg/dL (0.2-1.3); Blood Urea Nitrogen 46 mg/dL (9-20); Calcium 9.1 mg/dL (8.4-10.2); Carbon Dioxide 24 mmol/L (22-32); Chloride 106 mmol/L (98-107); Creatine Kinase 53 U/L (55-170); Estimated Glomerular Filt Rate 37 mL/min (>60); Globulin 3.1 g/dL (1.7-4.1); Glucose 120 mg/dL (80-110); HEMOLYSIS 50 (0-50); Magnesium 2.1 mg/dL (1.6-2.3); Potassium 4.6 mmol/L (3.4-5.1); Sodium 138 mmol/L (137-145); Total Protein 6.7 g/dL (6.3-8.2); Troponin I 0.061 ng/mL (0.01-0.034)
[2023-04-14 06:26] LABS: INR 1.2 (0.9-1.3); PTT Partial Thromboplastin Tim 26 SECONDS (26-36); Prothrombin Time 13.9 SECONDS (10.1-12.7)
[2023-04-14 06:32] VITALS: BP 145/83; RESP 18
[2023-04-14 06:51] LABS: Add Manual Diff / Slide Review NO; Basophils Absolute Auto 100 /uL (0-100); Eosinophils Absolute Auto 900 /uL (0-450); Eosinophils Percent Auto 7.2 % (2-4); Hematocrit 31.7 % (41-53); Hemoglobin 10.3 g/dL (13.5-17.5); Lymphocytes Absolute Auto 1700 /uL (1100-4500); Lymphocytes Percent Auto 14.7 % (25-40); Mean Corpuscular HGB Conc 32.5 % (30-36); Mean Corpuscular Hemoglobin 27.5 PG (26-34); Mean Corpuscular Volume 84.6 fL (80-100); Monocytes Absolute Auto 800 /uL (0-900); Monocytes Percent Auto 6.5 % (3-14); Neutrophils Absolute Auto 8400 /uL (1500-7000); Neutrophils Percent Auto 70.6 % (50-75); Platelet Count 585 X10^3/uL (150-400); Red Blood Cell Count 3.75 X10^6/uL (4.5-5.9); Red Cell Distribution Width 14.6 % (11.6-14.8); White Blood Cell Count 11.8 X10^3/uL (4.5-11.0)
== END 2023-04-14 06:38 | disposition home or self-care (01) ==
PROVIDERS: Emergency Provider Emergency Medicine
DX: I48.92 Unspecified atrial flutter (principal); R06.02 Shortness of breath; R00.0 Tachycardia, unspecified
CPT/HCPCS: 36415; 71045; 80053; 82550; 83735; 84484; 85025; 85610; 85730; 93005; 96374; 99284